=== PATIENT | female | born 1995 | race Two or more races ===

== ENCOUNTER → 2021-05-02 | Outpatient (CLI) | payer OTHER | END | disposition home or self-care (01) | LOC: LAB 09:31 | PROVIDERS: ATTEND Internal Medicine | DX: Z01.812 Encounter for preprocedural laboratory examination (principal) | CPT/HCPCS: 36415; 82565; 84520 ==

== ENCOUNTER → 2022-06-18 | Outpatient (CLI) | payer OTHER ==
[2022-06-18 09:33] LABS: Basophils # (auto) 0 10 ^3/uL (0-0.2); Basophils % (auto) 0.3 % (0.0-2.0); Eosinophils # (auto) 0.1 10 ^3/uL (0-0.8); Eosinophils % (auto) 1.3 % (0.0-7.0); Hematocrit 45.1 % (36.0-46.0); Hemoglobin 14.9 g/dL (12.2-16.2); Lymphocytes % (auto) 23.6 % (10.0-50.0); Mean Corpuscular Hemoglobin 29.9 pg (28.0-32.0); Mean Corpuscular Volume 90.8 fL (80.0-100.0); Monocytes # (auto) 0.5 10 ^3/uL (0-1.3); Monocytes % (auto) 5.6 % (0.0-12.0); Neutrophils # (auto) 5.7 10 ^3/uL (1.6-8.6); Neutrophils % (auto) 69.2 % (37.0-80.0); Nucleated Red Blood Cells % 0.1 %; Red Blood Cells 4.96 10^6/uL (4.0-5.20); Red Cell Distribution Width 12.5 % (11.8-14.3); White Blood Cell 8.3 10^3/uL (4.4-10.8)
[2022-06-18 10:26] LABS: % Iron Saturation 41.7 % (15-50)
[2022-06-18 10:27] LABS: Albumin 2.7 g/dL (3.4-5.0); BUN/Creatinine Ratio 18.5; Bilirubin, Total 0.6 mg/dL (0.2-1.0); Calcium 8.9 mg/dL (8.5-10.1); Total Protein 6.8 g/dL (6.4-8.2); Uric Acid 5.7 mg/dL (2.6-6.0)
== END | disposition home or self-care (01) ==
LOC: LAB 09:10
PROVIDERS: ATTEND Internal Medicine
DX: R79.89 Other specified abnormal findings of blood chemistry (principal); M25.50 Pain in unspecified joint; K21.9 Gastro-esophageal reflux disease without esophagitis; G43.909 Migraine, unspecified, not intractable, without status migrainosus
CPT/HCPCS: 36415; 80053; 80061; 83036; 83540; 83550; 84439; 84443; 84550; 85025; 85652; 86200; 86431

== ENCOUNTER → 2022-10-23 | Outpatient (CLI) | payer OTHER ==
[2022-10-23 09:27] LABS: Basophils # (auto) 0 10 ^3/uL (0-0.2); Basophils % (auto) 0.3 % (0.0-2.0); Eosinophils # (auto) 0.1 10 ^3/uL (0-0.8); Eosinophils % (auto) 1.4 % (0.0-7.0); Hematocrit 39.9 % (36.0-46.0); Hemoglobin 14.2 g/dL (12.2-16.2); Lymphocytes # (auto) 1.9 10 ^3/uL (0.4-5.4); Lymphocytes % (auto) 24.1 % (10.0-50.0); Mean Corpuscular Hemoglobin 31.6 pg (28.0-32.0); Mean Corpuscular Hgb Conc. 35.7 g/dL (32.0-36.0); Mean Corpuscular Volume 88.7 fL (80.0-100.0); Monocytes # (auto) 0.6 10 ^3/uL (0-1.3); Monocytes % (auto) 7.1 % (0.0-12.0); Neutrophils # (auto) 5.3 10 ^3/uL (1.6-8.6); Neutrophils % (auto) 67.1 % (37.0-80.0); Nucleated Red Blood Cells % 0.1 %; Red Blood Cells 4.49 10^6/uL (4.0-5.20); Red Cell Distribution Width 12.5 % (11.8-14.3)
[2022-10-23 10:28] LABS: Albumin 2.9 g/dL (3.4-5.0); Calcium 8.5 mg/dL (8.5-10.1); Potassium 4.2 mmol/L (3.5-5.1)
[2022-10-23 10:33] LABS: BUN/Creatinine Ratio 14.5 (10.0-20.0); Bilirubin, Total 0.7 mg/dL (0.2-1.0); Total Protein 6.9 g/dL (6.4-8.2)
[2022-10-23 10:37] LABS: Beta HCG, Quantitative < 1 mlU/mL (1-3); Thyroid Stimulating Hormone 2.43 uIU/mL (0.358-3.74)
[2022-10-23 12:04] LABS: Follicle Stimulating Hormone 3.69 IU/L (SEE BELOW); Leuteinizing Hormone 6.5 IU/L
== END | disposition home or self-care (01) ==
LOC: LAB 09:06
PROVIDERS: ATTEND Internal Medicine
DX: N92.1 Excessive and frequent menstruation with irregular cycle (principal)
CPT/HCPCS: 36415; 80053; 82670; 83001; 83002; 84403; 84439; 84443; 84702; 85025

== ENCOUNTER 2024-11-02 17:16 | Emergency (ER) | payer OTHER ==
[~2024-11-02] VITALS: Ht 157.5 cm; Wt 94.1 kg
--- NOTE | 2024-11-02 19:07 | ED.PDOC ---
History of Present Illness HPI Comments Ms. Rodríguez, 29-year-old female with past medical history significant for obesity, GERD, and no other significant medical history presented with acute onset of right wrist sharp pain with shooting radiation towards the proximal and distal part of the forearm, she woke up with a for a.m. in the morning with 10/10 pain, since then patient has a visited urgent care but did not have any further resolution, presumably she complains of similar 7/10 pain, reserve with the extension and flexion of the wrist but still has difficulty in maneuvering. Subjectively feels her right hand is clumsy and mildly swollen but visibly not clear. From urgent care she was referred to the ER for further evaluation and management. She denies any fever, chills, trauma, family history of premature coronary disease, bleeding or clotting diathesis, or any other relevant medical history. Past medical history: As above Past surgical history: As above Social history: She lives at home, with family and and 2 kids, works as a departmental store, denies any history of alcohol, smoking or recreational drugs. Home medication: PPI Family history: Noncontributory Allergic: NKDA, dietary allergy denies. Chief Complaint: Upper Extremity Time Seen by MD: 17:31 Reviewed Notes: Nurses Notes, Medications, Allergies Allergies: Coded Allergies: NO KNOWN ALLERGIES (Unverified , 11/02/24) Information Source: Patient Mode of Arrival: Ambulatory Severity: Moderate Timing: Hours Duration: Since onset Prehospital treatment: None Past Medical History Past Medical History (Other): As above Surgical History (Other): As above Family History Family History (Other): As above Social History Smoker: Non-Smoker Alcohol: Denies ETOH Use Drugs: Denies Drug Use Lives In: Home Constitutional: denies: chills, diaphoresis, fatigue, fever, malaise, sweats, weakness, others EENTM: denies: blurred vision, double vision, ear bleeding, ear discharge, ear drainage, ear pain, ear ringing, eye pain, eye redness, hearing loss, mouth pain, mouth swelling, nasal discharge, nose bleeding, nose congestion, nose pain, photophobia, tearing, throat pain, throat swelling, voice changes, others Respiratory: denies: cough, hemoptysis, orthopnea, SOB at rest, shortness of breath, SOB with excertion, stridor, wheezing, others Cardiovascular: denies: chest pain, dizzy spells, diaphoresis, Dyspnea on exertion, edema, irregular heart beat, left arm pain, lightheadedness, palpitations, PND, syncope, others Gastrointestinal: denies: abdomen distended, abdominal pain, blood streaked bowels, constipated, diarrhea, dysphagia, difficulty swallowing, hematemesis, melena, nausea, poor appetite, poor fluid intake, rectal bleeding, rectal pain, vomiting, others Genitourinary: denies: abnormal vagina bleeding, burning, dyspareunia, dysuria, flank pain, frequency, hematuria, incontinence, pain, , vagina discharge, urgency, others Neurological: denies: dizziness, fainting, headache, left sided numbness, left sided weakness, numbness, paresthesia, pre-existing deficit, right sided numbness, right sided weakness, seizure, speech problems, tingling, tremors, weakness, others Musculoskeletal: reports: others (Right upper extremity pain and radiation) Integumetry: denies: bruises, change in color, change in hair/nails, dryness, laceration, lesions, lumps, rash, wounds, others Allergic/Immunocompromised: denies: Difficulty Healing, Frequent Infections, Hives, Itching, others Hematologic/Lymphatic: denies: anemia, blood clots, easy bleeding, easy bruising, swollen glands, others Endocrine: denies: excessive hunger, excessive sweating, excessive thirst, excessive urination, flushing, intolerance to cold, intolerance to heat, unexplained weight gain, unexplained weight loss, others Psychiatric: denies: anxiety, bipolar disorder, depression, hopeless, panic disorder, schizophrenia, sleepless, suicidal, others Physical Exam General Appearance: Mild Distress HEENT: Normal ENT Inspection Neck: NOT DONE Respiratory: Lungs Clear, No Accessory Muscle Use, No Respiratory Distress, Normal Breath Sounds Cardiovascular: No Edema, No JVD, No Murmur, No Gallop, Normal Peripheral Pulses, Regular Rate/Rhythm Breast Exam: Deferred Gastrointestinal: Normal Bowel Sounds, Soft Genitalia: Deferred Pelvic: Deferred Rectal: Deferred Extremities: Normal range of motion Neurologic: None, Normal Mood Cerebellar Function: Normal Reflexes: None (Complains of pain, deferred.) Skin: Dry, None, Normal Color, Rash, Warm Lymphatic: NOT DONE Was a procedure done? Was a procedure done?: No Differential Dx Considerations may include: Differential diagnosis includes right wrist fracture, carpal tunnel syndrome, compartment syndrome, neuropathic, DVT, skin and soft tissue infection, sprain, strain, somatic symptoms, inflammatory joint disease X-Ray, Labs, Meds, VS Vital Signs Date Time Temp Pulse Resp B/P (MAP) Pulse Ox O2 Delivery O2 Flow Rate FiO2 11/02/24 21:32 98.4 89 17 130/89 (103) 96 98.4 11/02/24 21:31 89 17 130/89 11/02/24 21:03 88 18 95 Room Air 11/02/24 21:03 98.6 88 18 126/94 (105) 95 98.6 11/02/24 20:57 88 18 126/94 11/02/24 18:10 97.7 77 18 138/97 (111) 98 97.7 Lab Test 11/02/24 18:40 Range/Units Lactic Acid Level 1.2 0.4-2.0 mmol/L Beta HCG, Quantitative 0.4 L 1.5-4.2 mIU/mL Current Medications Medications (Trade) Dose Ordered Sig/Isabella Route Start Time Stop Time Status Last Admin Morphine Sulfate 1 mg ONCE ONCE IM 11/02/24 19:15 11/02/24 19:16 DC 11/02/24 20:57 Cyclobenzaprine HCl (Flexeril Tablet) 5 mg ONCE ONCE PO 11/02/24 19:15 11/02/24 19:16 DC 11/02/24 21:37 Time of 1ST Reevaluation: 19:05 Reevaluation 1ST: Unchanged (Unchanged, waiting for further evaluations. Labs pending imaging pending.) Time of 2ND Reevaluation: 21:47 Reevaluation 2ND: Improved (Pain meds, PCP follow up and Neurology follow up. Discussed with Dr. Berry ) Patient Education/Counseling: Diagnosis, Treatment, Prognosis, Need For Follow Up Family Education/Counseling: No Family Present Sepsis Sepsis Reasesment Focused Exam Sepsis focused exam: focus exam completed, time: Departure 1 Departure Time of Disposition: 22:15 Impression: Primary Impression: Neuropathy Disposition: 01 HOME / SELF CARE / HOMELESS Condition: Fair Critical Care Note Critical Care Time?: No Stability Stability form required: No Heart Score Heart Score: Heart Score Response (Comments) Value History N/A 0 EKG N/A 0 Age N/A 0 Risk Factors N/A 0 Troponin N/A 0 Total 0 TARSHA CORDERO RESIDENT Nov 02, 2024 19:07
--- NOTE | 2024-11-02 19:22 | DVH ---
RIGHT Upper Extremity Venous Duplex Clinical History: ARM PAIN Comparison: None Technique: Duplex Doppler evaluation of the venous system of the RIGHT lower neck and upper extremity including color Doppler and spectral/pulsed waveform analysis was performed. Findings: Internal jugular vein demonstrates appropriate compressibility and waveform variability . Subclavian vein is patent on color Doppler evaluation without intraluminal thrombus and demonstrates waveform variability . Visualized portion of the brachiocephalic vein is patent on color Doppler evaluation without intralum inal thrombus and demonstrates waveform variability . Axillary vein demonstrates appropriate compressibility and waveform variability . Brachial veins demonstrate appropriate compressibility and patency on Doppler evaluation. Basilic vein demonstrates appropriate compressibility and patency on Doppler evaluation. Cephalic vein demonstrates appropriate compressibility and patency on Doppler evaluation. Impression: No venous thrombus identified in RIGHT upper extremity vessels evaluated above.
[2024-11-02] MEDS: CYCLOBENZAPRINE HCL 10 MG TAB PO ONE (20:42)
[2024-11-02] MEDS: MORPHINE SULFATE INJ 2 MG/ml SYRG IM ONE (20:57)
--- NOTE | 2024-11-02 21:00 | DVH ---
Indication: Wrist pain Technique: 3 views right wrist Comparison: None FINDINGS/IMPRESSION: No radiographic evidence for acute fracture or dislocation. No significant soft tissue edema. No radi opaque foreign body.
[2024-11-02 21:32] VITALS: BP 130/89; PULSE 89; RESP 17; TEMP 98.4; O2SAT 96
== END 2024-11-02 22:49 | disposition home or self-care (01) ==
LOC: ER 17:16
DX: G62.9 Polyneuropathy, unspecified (principal); Z79.899 Other long term (current) drug therapy
CPT/HCPCS: 36415; 73110; 83605; 84702; 93971; 96372; 99285; J2270

== ENCOUNTER 2024-12-05 11:37 | Day surgery (SDC) | payer OTHER ==
[2024-12-01 14:15] LABS: Urine Bacteria None Seen /hpf (None Seen)
[2024-12-01 14:23] LABS: Basophils # (auto) 0 10 ^3/uL (0-0.2); Basophils % (auto) 0.3 % (0.0-2.0); Eosinophils # (auto) 0.1 10 ^3/uL (0-0.8); Eosinophils % (auto) 1.3 % (0.0-7.0); Hematocrit 39.9 % (36.0-46.0); Hemoglobin 13.7 g/dL (12.2-16.2); Lymphocytes # (auto) 1.8 10 ^3/uL (0.4-5.4); Lymphocytes % (auto) 22.4 % (10.0-50.0); Mean Corpuscular Hemoglobin 29.8 pg (28.0-32.0); Mean Corpuscular Hgb Conc. 34.4 g/dL (32.0-36.0); Mean Corpuscular Volume 86.8 fL (80.0-100.0); Monocytes # (auto) 0.5 10 ^3/uL (0-1.3); Monocytes % (auto) 6.3 % (0.0-12.0); Neutrophils # (auto) 5.5 10 ^3/uL (1.6-8.6); Neutrophils % (auto) 69.7 % (37.0-80.0); Nucleated Red Blood Cells % 0.1 %; Platelet Count (auto) 308 10^3/uL (140-450); Red Blood Cells 4.59 10^6/uL (4.0-5.20); Red Cell Distribution Width 12.6 % (11.8-14.3); White Blood Cell 7.8 10^3/uL (4.4-10.8)
[2024-12-01 14:29] LABS: Urine Blood TRACE /uL (Negative); Urine Clarity Clear (Clear); Urine Color Light-Yellow (Yellow); Urine Protein, UAD 2+ (Negative); Urine Specific Gravity 1.011 (1.001-1.035); Urine Squamous Epithelial Cell FEW /hpf (<5); Urine Urobilinogen Normal (Negative); Urine WBC < 1 /HPF (0-5); Urine pH 7.5 (5.0-9.0)
[2024-12-01 14:32] LABS: INR 0.9 (0.9-1.15); Partial Thromboplastin Time 24.4 SEC (24.5-34.5); Prothrombin Time 9.6 sec (9.3-11.8)
[2024-12-01 14:44] LABS: Alanine Aminotransferase 64 U/L (7-40); Albumin 3.8 g/dL (3.2-4.8); Alkaline Phosphatase 127 U/L (46-116); Anion Gap 10 (5-15); Aspartate Aminotransferase 39 U/L (13-40); BUN/Creatinine Ratio 14.1 (10.0-20.0); Bilirubin, Total 0.3 mg/dL (0.2-1.0); Blood Urea Nitrogen 12 mg/dL (9-23); Carbon Dioxide 23 mmol/L (20-31); Chloride 107 mmol/L (98-107); Glucose 104 mg/dL (74-106); Potassium 3.8 mmol/L (3.5-5.1); Sodium 140 mmol/L (136-145); Total Protein 6.5 g/dL (5.7-8.2)
[~2024-12-05] VITALS: Ht 157.5 cm; Wt 85.7 kg
[2024-12-05] MEDS ORDERED: LIDOCAINE VISCOUS 2% 15ML UD ONE (12:31)
[2024-12-05] MEDS ORDERED: MIDAZOLAM HCL 2MG/2ML 2ml VIAL (1mg/ml) ONE (12:36)
[2024-12-05] MEDS ORDERED: fentaNYL CITRATE 100 MCG/2 ML VL ONE (12:36)
[2024-12-05] MEDS ORDERED: PROPOFOL 10 MG/ML 20 ML IV ONE (12:57)
[2024-12-05] MEDS ORDERED: DexAMETHasone SOD PHOS 10MG/1ML VIAL INJ ONE (12:57)
[2024-12-05 13:15] VITALS: PULSE 80; RESP 16; O2SAT 100
--- NOTE | 2024-12-05 13:45 | DVHOP2 ---
Operative Report DATE OF OPERATION: 12/05/24 PROCEDURE: Upper Endoscopy with biopsy. PREOPERATIVE INDICATION: The patient is a 29 -year-old female undergoing endoscopy for chronic GERD and dyspepsia POSTOPERATIVE DIAGNOSES: 1. Moderate gastritis with hyperemia erythema mucosal edema involving the stomach body and the antrum from which biopsies were obtained 2. Slightly irregular squamocolumnar junction but no significant erosive esophagitis PROCEDURE PERFORMED BY: Malvin Barber GI NURSE: Carolin SCOPE: Olympus videoendoscope. ASA CLASS: 2 PREOPERATIVE MEDICATIONS: Mac gina, Dr. Zepeda PROCEDURE IN DETAIL: After obtaining an informed consent, the patient was placed on left lateral decubitus position. The patient was then sedated with the above medications. A bite block was placed between her teeth. The endoscope was then passed through the oropharynx, into the esophagus, and through the stomach and pylorus up to the second and third part of the duodenum. The endoscope was then withdrawn. The 2nd and 3rd part of the duodenum were normal. Duodenal bulb showed minimal duodenitis. Duodenal biopsies were obtained. The pre-pyloric area antrum and body of the stomach showed moderate gastritis with hyperemia erythema mucosal edema On retroflexion the fundus and cardia were otherwise normal. Gastric biopsies were obtained. The endoscope was then withdrawn into the distal esophagus Patient had a slightly irregular squamocolumnar junction but no significant erosive esophagitis or hiatal hernia were noted. GE junction biopsies were obtained. The remaining distal and proximal esophagus and oropharynx were unremarkable The patient tolerated the procedure well without difficulty. COMPLICATIONS : None SPECIMENS: Duodenal biopsies Gastric biopsies GE junction biopsies DISPOSITION: Stable D/C to home PLAN: 1. Await for biopsy result 2. Will place pt on Protonix 40 mg p.o. daily 3. DC aspirin NSAIDs smoking alcohol 4. Resume GI soft diet advance as tolerated 5. Outpatient follow up with me in 4-6 weeks to review results and discuss further management MALVIN BARBER MD December 05, 2024 13:45
--- NOTE | 2024-12-05 13:48 | DVHOP2 ---
Operative Report DATE OF OPERATION: 12/05/24 PROCEDURE: Colonoscopy with cold biopsy polypectomy. PREOPERATIVE INDICATION: The patient is a 29 -year-old female undergoing colonoscopy for evaluation of intermittent rectal bleeding and family history of colon cancer POSTOPERATIVE DIAGNOSES: 1. There were two diminutive benign-appearing hyperplastic type sigmoid polyps that were seen and removed by cold biopsy forceps 2. 1+ internal hemorrhoids otherwise normal examination up to the cecum and terminal ileum PROCEDURE PERFORMED BY: Malvin Barber M.D. SCOPE: Olympus videocolonoscope. ASA CLASS: 2. PREOPERATIVE MEDICATIONS: Dr. Katelyn Dykes PROCEDURE IN DETAIL: After obtaining an informed consent, the patient was placed on left lateral decubitus position. She was then sedated with the above medications. A rectal examination was performed that was normal. The colonoscope was then passed through the anus into the rectosigmoid and through the descending, transverse, and ascending colon up to the cecum with visualization of the appendiceal orifice, base of the cecum and the ileocecal valve. The colonoscope was then withdrawn. The distal 5 cm of the terminal ileum were normal No masses or colitis was noted. There was no clear-cut diverticular disease. In the sigmoid there were two diminutive benign-appearing sigmoid polyps were removed by cold biopsy forceps On retroflexion and straight on view she had 1+ internal hemorrhoids. The patient tolerated the procedure well without difficulty. WITHDRAWAL TIME: 7 minute QUALITY OF THE PREP: [place] Bowel Prep score: 9. COMPLICATIONS : None SPECIMENS: Sigmoid polyps DISPOSITION: Stable D/C to home PLAN: 1. Repeat colonoscopy base on biopsy result likely in 5-7 years because of family history of colon cancer 2. Resume GI soft diet advance as tolerated 3. Local anorectal hemorrhoidal care 4. Outpatient follow up with me in 4-6 weeks to review results and discuss further management MALVIN BARBER MD December 05, 2024 13:48
[2024-12-05 14:00] VITALS: BP 131/96; PULSE 68; RESP 15; O2SAT 98
== END 2024-12-05 14:10 | disposition home or self-care (01) ==
LOC: GI 11:37
PROVIDERS: ATTEND Internal Medicine Gastroenterology
DX: K62.5 Hemorrhage of anus and rectum (principal); K63.5 Polyp of colon; K64.8 Other hemorrhoids; K29.50 Unspecified chronic gastritis without bleeding; B96.81 Helicobacter pylori [H. pylori] as the cause of diseases classified elsewhere; K21.00 Gastro-esophageal reflux disease with esophagitis, without bleeding; I10 Essential (primary) hypertension; I49.9 Cardiac arrhythmia, unspecified; E66.9 Obesity, unspecified; Z68.34 Body mass index [BMI] 34.0-34.9, adult; Z87.11 Personal history of peptic ulcer disease; Z80.0 Family history of malignant neoplasm of digestive organs
CPT/HCPCS: 36415; 43239; 45380; 80053; 81001; 84702; 85025; 85610; 85730; J1100; J2250; J2704; J3010; J7030